=== PATIENT | male | born 1995 | race Caucasian/White ===

== ENCOUNTER 2019-05-21 17:58 | Outpatient (REF) | payer MEDICAID, SELFPAY ==
[2019-05-21 19:51] LABS: Abs Immature Grans 0.04 k/cumm (0.0-0.09); Absolute Basophil Count 0.03 k/cumm (0.0-0.2); Absolute Monocyte Count 1.43 k/cumm (0.11-0.7); Basophils % 0.2; Eosinophils % 2.6; HCT 44.3 % (40.0-50.0); Immature Grans % 0.3; Lymphocytes % 22.8; Mean Corp. HGB Concentration 33.9 g/dL (32.0-36.0); Mean Corpuscular Hemoglobin 27.7 pg (27.0-33.0); Mean Corpuscular Volume 81.9 fL (80-95); Mean Platelet Volume 10.9 fL (8.0-11.0); Monocytes % 10.2; Neutrophils % 63.9; Platelet Count 352 x1000/uL (130-400); RBC 5.41 m/cumm (4.50-6.00); RBC Distribution Width 12.8 % (11.8-14.1); White Blood Cell Count 14.05 k/cumm (4.4-10.8)
[2019-05-21 19:59] LABS: Absolute Eosinophil Count 0.37 k/cumm (0.0-0.7); Absolute Neutrophil Count 8.98 k/cumm (1.2-6.7)
[2019-05-21 20:04] LABS: ALT 28 U/L (16-63); AST 12 U/L (15-37); Albumin 4.1 g/dL (3.4-5.0); Alkaline Phosphatase 85 U/L (46-116); Anion Gap 6.7 mmol/L (3-11); BUN 10 mg/dL (7-18); Bilirubin, Total 0.3 mg/dL (0.2-1.0); CO2 30.3 mmol/L (21.0-32.0); CREATININE 0.85 mg/dL (0.70-1.30); Calcium 9.4 mg/dL (8.5-10.1); Calculated LDL 132 mg/dL; Chloride 102 mmol/L (98-107); Cholesterol 219 mg/dL (50-200); Glucose 75 mg/dL (70-100); HDL Cholesterol 38 mg/dL (40-60); Potassium 4.2 mmol/L (3.5-5.1); Sodium 139 mmol/L (136-145); TSH (W/Ref FT4) 0.51 uIU/mL (0.36-3.74); Triglyceride 245 mg/dL (30-150)
== END 2019-05-21 18:18 ==
LOC: NCHCN 17:58
PROVIDERS: PCP Family Medicine; Visit Provider Family Medicine
DX: F20.9 Schizophrenia, unspecified (principal); Z68.38 Body mass index [BMI] 38.0-38.9, adult; D72.829 Elevated white blood cell count, unspecified
CPT/HCPCS: 80053; 80061; 84443; 85025

== ENCOUNTER 2020-05-22 17:34 | Outpatient (REF) | payer MEDICAID, SELFPAY | END 2020-05-22 17:54 | LOC: NCHCN 17:34 | PROVIDERS: PCP Family Medicine; Visit Provider Family Medicine | DX: Z13.1 Encounter for screening for diabetes mellitus (principal) | CPT/HCPCS: 83036 ==

== ENCOUNTER 2020-06-29 07:45 | Outpatient (CLI) | payer MEDICAID, SELFPAY ==
[2020-07-01 17:53] LABS: COVID-19 RT-PCR Result NEGATIVE (Negative)
== END 2020-06-29 08:05 ==
PROVIDERS: PCP Family Medicine; Visit Provider Family Medicine
DX: Z11.59 Encounter for screening for other viral diseases (principal); Z01.818 Encounter for other preprocedural examination
CPT/HCPCS: U0003

== ENCOUNTER 2020-07-02 04:31 | Outpatient (CLI) | payer MEDICAID, SELFPAY ==
[2020-07-02] MEDS: Albuterol HFA 18 GM 200 PUFF INH IH (15:43)
[2020-07-02] MEDS: Inhaler, Assist Device 1 EACH MC (15:43)
--- NOTE | 2020-07-06 09:31 | W.PFT ---
Date of service: 07/02/20 Time of Service: 03:00 Pulmonary Function Test Result Requesting Provider Dr Mondragon Interpretation Spirometry: Shows borderline mild obstructive airways disease, no bronchodilator response Lung Volumes: No evidence of restriction Diffusion Capacity: Mildly reduced even when corrected to alveolar volume Airway Pressure: Normal Impression Borderline mild obstructive airways disease with no significant bronchodilator response, this is associated with mild diffusion defect, Clinical Correlation therefore is recommended.
== END 2020-07-02 04:51 ==
PROVIDERS: PCP Family Medicine; Visit Provider Family Medicine
DX: R06.02 Shortness of breath (principal)
CPT/HCPCS: 94060; 94726; 94729

== ENCOUNTER 2020-09-16 18:51 | Outpatient (REF) | payer MEDICAID, SELFPAY ==
[2020-09-18 17:55] LABS: COVID-19 RT-PCR UVMMC Result Positive (Negative)
== END 2020-09-16 19:11 ==
LOC: NCHCN 18:51
PROVIDERS: PCP Family Medicine; Visit Provider Physician Assistant
DX: Z20.828 Contact with and (suspected) exposure to other viral communicable diseases (principal)
CPT/HCPCS: U0003

== ENCOUNTER 2020-11-08 12:15 | Emergency (ER) | payer MEDICAID, SELFPAY ==
[2020-11-08 12:23] VITALS: BP 94/58; PULSE 99; RESP 18; TEMP 36; O2SAT 98
[2020-11-08] MEDS: Ibuprofen 600 MG TAB PO (12:45)
--- NOTE | 2020-11-08 13:06 | DI.RAD_ITS ---
EXAM: XR KNEE RT 3V AP,LAT,NIKKI CLINICAL HISTORY: fall, dislocated patella. TECHNIQUE: 2D digital imaging was performed. COMPARISON: No exams were available for comparison FINDINGS: BONES: No acute fracture is present. No bony destructive lesion is seen. JOINTS: The knee is normally aligned. No joint effusion is seen. The patella appears laterally sublux ed. Angie view may be considered for further evaluation. Mild degenerative changes are seen in th e lateral femoral tibial joint space. SOFT TISSUE: Moderate joint effusion is present. IMPRESSION: 1. No acute fracture. 2. Moderate joint effusion. 3. Apparent lateral subluxation of the patella. DATA REPOSITORY: RADIATION DOSE DELIVERED:
--- NOTE | 2020-11-08 13:14 | ED.GENADUL_ITS ---
Discharge Plan Disposition Patient Disposition: HOME Condition: Stable Discharge Details Clinical Impression: Closed dislocation of right patella Primary Care Provider: Jeffery Mondragon ED Provider: Kelvin Boyce Home Meds and New Rx's Prescriptions: Continued nicotine 14 MG/24 HR patch 24 hour 14 mg Transdermal DAILY PRN PRNRF: 0 propranolol 20 mg tablet 20 mg PO BID RF: 0 olanzapine 20 mg tablet 20 mg PO HS RF: 0 hydroxyzine HCl 25 mg Tablet 25 mg PO BID PRNRF: 0 albuterol sulfate 90 mcg/actuation HFA aerosol inhaler 2 puff INHALATION PRN PRNRF: 0 Discharge Instructions Instructions: Patellar Dislocation (ED) Additional Instructions: Please take ibuprofen over the counter. Take 600mg by mouth every 6 hours as needed for pain. Please use knee immobilizer and crutches. You may bear weight on her leg as tolerated. Call to schedule follow-up with orthopedics. Return to the ER for any worsening or new concerning symptoms. Referrals: [facility] [Provider Group] Jeffery Mondragon [Primary Care Provider] - Discharge Data Discharge Date/Time-TO BE ENTERED AT DEPARTURE: 11/08/20 13:45 Medical Decision Making 24-year-old male here after slip and fall on ice with what sounds like a patellar dislocation that was self reduced. Patient is neurovascular intact distally. He is tender along his medial retinaculum and has swelling of the knee. X-ray of the right knee was reviewed and interpreted by radiology: No evidence of fracture, joint space effusion, consider MRI of the knee. Ibuprofen was provided for pain. Patient was patient knee immobilizer and provided crutches. Plan will be for him to follow-up with orthopedics. Usual customary discharge instructions were reviewed with the patient. HPI General Mode of arrival: ambulatory . Date/Time Provider Initiated Documentation: 11/08/20 12:42 . Limitations to Documentation: no limitations . Information obtained by: patient . HPI Narrative: 24-year-old male with chief complaint of right knee pain. Patient notes that just prior to arrival he was walking home from the store and slipped on the ice and believes he dislocated his kneecap. He was able to reposition his knee and in doing so relocated kneecap. Pain was initially severe and now much improved. Still hurts when he flexes his knee. No other injury. He has associated knee swelling. Related Data Home Medications Medication Instructions Recorded Confirmed nicotine 14 mg TRANSDERMAL DAILY PRN PRN 04/18/18 11/08/20 patch albuterol sulfate 2 puff INHALATION PRN PRN 11/08/20 11/08/20 hydroxyzine HCl 25 mg PO BID PRN 11/08/20 11/08/20 olanzapine 20 mg PO HS 11/08/20 11/08/20 propranolol 20 mg PO BID 11/08/20 11/08/20 Previous Rx's Medication Instructions Recorded nicotine 14 mg TRANSDERMAL DAILY PRN PRN 04/18/18 patch Allergies Allergy/AdvReac Type Severity Reaction Status Date / Time No Known Allergies Allergy Unverified 11/08/20 12:52 General Stated Complaint: Orthopedic ESPERANZA: 4 Review of Systems Musculoskeletal Musculoskeletal: Reports as per HPI, Denies numbness and Denies tingling Neurologic Neurologic: Denies numbness and Denies tingling PFSH Medical History (Updated 11/08/20 @ 13:23 by Kelvin Boyce MD) Schizoaffective disorder Surgical History (Updated 06/27/18 @ 14:36 by [email or web address] [place]) Repair of inguinal hernia Family History Mother No problems noted. Father No problems noted. Social History Smoking/Tobacco Use Status: Former Tobacco Use Smoking risk assessment performed?: Yes Alcohol Intake: former Drug use: Current Sobriety Do you feel safe at home: Yes Do you feel safe in your relationship?: Yes Exam Const General: cooperative and no acute distress HENMT Head: normocephalic and atraumatic Resp Auscultation: clear to auscultation bilaterally, no rales, no rhonchi and no wheezes Cardio Rate: regular rate and not tachycardic Rhythm: regular rhythm Pulses: dorsalis pedis present on the right 2+ Neuro General: patient alert, patient awake and tone normal Extrem Right lower extremity: knee Details: tenderness (Medial to patella), swelling and other (Able to fully extend against gravity) Course Vital Signs Vital signs: Vital Signs Temperature 36.0 C L 11/08/20 12:23 Pulse 99 H 11/08/20 12:23 Respiratory Rate 18 11/08/20 12:23 Blood Pressure 94/58 L 11/08/20 12:23 Pulse Oximetry 98 11/08/20 12:23 Temperature 36.0 C L 11/08/20 12:23 Temperature Source Skin 11/08/20 12:23 Pulse 99 H 11/08/20 12:23 Respiratory Rate 18 11/08/20 12:23 Respiratory Effort 11/08/20 12:51 Blood Pressure 94/58 L 11/08/20 12:23 Blood Pressure Position Sitting 11/08/20 12:23 Pulse Oximetry 98 11/08/20 12:23 Oxygen Delivery Method Room Air 11/08/20 12:23 Oxygen Flow Rate 0 11/08/20 12:23
--- NOTE | 2020-11-08 13:15 | DI.VRAD_ITS ---
PROCEDURE INFORMATION: Exam: XR Right Knee Exam date and time: 11/08/2020 1:05 PM Age: 24 years old Clinical indication: Pain; Knee; Right; Patient HX: Fall, dislocated patella TECHNIQUE: Imaging protocol: XR Right knee. Views: 3 views. COMPARISON: No relevant prior studies available. FINDINGS: Bones/joints: Joint space effusion. Lateral joint space narrowing with periarticular osteophyte formation. No evidence patella fracture. Soft tissues: Normal. IMPRESSION: No evidence of fracture. Joint space effusion. Consider MRI of the knee. Dictated and Authenticated by: Braulio Frank MD. Ordering:KELLE Warren MD
== END 2020-11-08 13:45 | disposition home or self-care (01) ==
PROVIDERS: Emergency Provider Student in an Organized Health Care Education/Training Program; PCP Family Medicine
DX: S83.091A Other subluxation of right patella, initial encounter (principal); M25.461 Effusion, right knee; W00.0XXA Fall on same level due to ice and snow, initial encounter
CPT/HCPCS: 29505; 73562; 99283

== ENCOUNTER 2020-11-24 09:57 | Outpatient (CLI) | payer MEDICAID, SELFPAY ==
--- NOTE | 2020-11-24 09:00 | DI.RAD_ITS ---
EXAM: XR KNEES MERCHANT ONLY CLINICAL HISTORY: s/p patella dislocation TECHNIQUE: COMPARISON: CR,XR XR KNEE RT 3V AP,LAT,NIKKI from 11/08/2020 FINDINGS: Merchant view of the knees was obtained. Right patella is moderately subluxed laterally. Left nava la is moderately subluxed laterally and there is medial accessory ossicle of the left patella. No ot her significant findings. Subchondral bone appears well maintained. Minimal marginal osteophytes no aurea at the patellofemoral joints bilaterally. IMPRESSION: RADIATION DOSE DELIVERED: Total DLP
== END 2020-11-24 09:58 | disposition home or self-care (01) ==
LOC: DIORS 09:57
PROVIDERS: PCP Family Medicine; Referring Provider Family Medicine; Visit Provider Physician Assistant Surgical
DX: S83.012A Lateral subluxation of left patella, initial encounter (principal); S83.011A Lateral subluxation of right patella, initial encounter
CPT/HCPCS: 73565

== ENCOUNTER 2020-12-28 16:21 | Outpatient (REF) | payer MEDICAID, SELFPAY ==
[2020-12-28 16:14] LABS: Hemoglobin A1C 4.7 % (<5.7)
[2020-12-28 16:21] LABS: Calculated LDL 151 mg/dL (<100); Cholesterol 237 mg/dL (<200); HDL Cholesterol 46 mg/dL (40-60); Triglyceride 202 mg/dL (<150)
== END 2020-12-28 16:22 | disposition home or self-care (01) ==
LOC: NCHCN 16:21
PROVIDERS: PCP Family Medicine; Visit Provider Family Medicine
DX: Z13.1 Encounter for screening for diabetes mellitus (principal); Z13.220 Encounter for screening for lipoid disorders; Z00.00 Encounter for general adult medical examination without abnormal findings
CPT/HCPCS: 80061; 83036

== ENCOUNTER 2022-06-01 18:28 | Outpatient (REF) | payer MEDICAID, SELFPAY ==
[2022-06-03 09:46] LABS: HIV-1/2 Ag & Ab Screen Negative (Negative)
[2022-06-03 10:00] LABS: Syphilis Serology (RPR) Negative (Negative)
[2022-06-03 11:00] LABS: Hepatitis B Surface Ag Negative (Negative)
[2022-06-03 11:29] LABS: Hepatitis C Ab w Rflx HCV PCR Negative (Negative)
== END 2022-06-01 18:29 | disposition home or self-care (01) ==
LOC: NCHCN 18:28
PROVIDERS: PCP Family Medicine; Visit Provider Family Medicine
DX: R94.6 Abnormal results of thyroid function studies (principal); Z11.4 Encounter for screening for human immunodeficiency virus [HIV]; Z11.59 Encounter for screening for other viral diseases; Z11.3 Encounter for screening for infections with a predominantly sexual mode of transmission
CPT/HCPCS: 86803; 87340; 87389; 84443; 86592

== ENCOUNTER 2022-08-07 07:56 | Emergency (ER) | payer MEDICAID, SELFPAY ==
[2022-08-07 08:05] VITALS: BP 145/100; PULSE 77; RESP 18; TEMP 36.6; O2SAT 100
--- NOTE | 2022-08-07 09:36 | W.ED.GENAD ---
Discharge Plan Disposition Patient Disposition: Home Condition: Improving Discharge Details Clinical Impression: Pain, dental Primary Care Provider: Jeffery Mondragon ED Provider: Keven Mckenzie Home Meds and New Rx's Prescriptions: New amoxicillin 875 mg tablet 875 mg PO BID Qty: 20 0RF Continued benzonatate 100 mg capsule 100 mg PO TID PRN (Reason: cough) Qty: 14 0RF hydroxyzine HCl 25 mg Tablet 25 mg PO BID PRN albuterol sulfate 90 mcg/actuation HFA aerosol inhaler 2 puff INHALATION PRN PRN Label Comments: INHALE 1 TO 2 PUFFS BY MOUTH EVERY 4 TO 6 HOURS NEEDED FOR WHEEZING OR BEFORE EXERCISE Discharge Instructions Instructions: Toothache (ED) Additional Instructions: Amoxicillin as directed. [id number] medications such as Tylenol, Motrin, Orajel, etc. for symptomatic control. Cool and/or warm compresses every 2 hours for 20 minutes. Salt water swish and spit as tolerated. Please watch for new or worsening symptoms and return to the ER for any concerns. Lastly, use the list provided, contact the dentist on the list tomorrow to obtain prompt outpatient dental follow-up. Discharge Data Discharge Date/Time-TO BE ENTERED AT DEPARTURE: 08/07/22 10:11 Medical Decision Making 26-year-old gentleman with chronic dental pain, worse recently, most recently but increased pain since this morning. Clinically he appears well, nontoxic, afebrile, no trismus, airway is patent. We discussed the importance of outpatient dental follow-up. We will provide amoxicillin for potential early dental infection. We discussed dental block and patient is agreeable. Dental block performed, patient tolerated well, now asymptomatic. Local dental list provided Standard discharge and return precautions were provided. Patient understands, is agreeable to this plan, and has no additional questions or concerns upon discharge. This documentation was generated using [employer] system, please disregard any oddities of phrase or misspellings. Medical Records Medical records reviewed: Yes I reviewed the patient's medical records. Sign Out No HPI General Mode of arrival: ambulatory. Date/Time Provider Initiated Documentation: 08/07/22 09:04. Limitations to Documentation: no limitations. Information obtained by: patient. HPI Narrative: This is a 26-year-old gentleman, former smoker, presents reporting chronic left lower dental pain for at least 2 years but has had no time to address this with a dentist, now reporting increased pain over the past day or so, worse since this morning. He has not taken any [id number] medication. He denies fever, ear pain, difficulty opening his mouth, swallowing, speaking, breathing, etc. He has no additional concerns or complaints at this time. Related Data Home Medications Medication Instructions Recorded Confirmed albuterol sulfate 90 mcg/actuation 2 puff inhalation PRN PRN 11/08/20 06/20/22 aerosol inhaler hydroxyzine HCl 25 mg tablet 25 mg PO BID PRN 11/08/20 06/20/22 benzonatate 100 mg capsule 100 mg PO TID PRN cough #14 caps 06/20/22 06/20/22 amoxicillin 875 mg tablet 875 mg PO BID #20 tabs 08/07/22 Previous Rx's Medication Instructions Recorded benzonatate 100 mg capsule 100 mg PO TID PRN cough #14 caps 06/20/22 amoxicillin 875 mg tablet 875 mg PO BID #20 tabs 08/07/22 Allergies Allergy/AdvReac Type Severity Reaction Status Date / Time contact metal agent Allergy Verified 06/20/22 12:29 General Stated Complaint: DentalOral ESPERANZA: 4 Review of Systems Constitutional Constitutional: Denies fever(s) and Denies headache(s) ENT Ears, Nose, Mouth, and Throat: Denies headache(s), Reports mouth pain, Denies sore throat and Denies throat swelling Gastrointestinal Gastrointestinal: Denies abdominal pain, Denies nausea and Denies vomiting Integumentary/Breasts Skin/Breast: Denies rash Neurologic Neurologic: Denies headache(s) Allergic/Immunologic Allergic/Immunologic: Denies throat swelling [facility] All Active Problems (Updated 08/07/22 @ 09:49 by GRISELDA Berry) Pain, dental (Acute) Varicocele (Acute) Acne (Acute) Akathisia (Acute) Constipation (Acute) Sebaceous cyst (Acute) Schizophrenia (Chronic) Hypertension (Chronic) Abnormal thyroid function test (Acute) Sleep apnea (Acute) Patellar maltracking (Acute) Closed dislocation of right patella (Acute) Drug-induced psychotic disorder (Acute) Paranoid behavior (Acute) Medical History Cavernous hemangioma Schizoaffective disorder Surgical History Repair of inguinal hernia Family History Mother No problems noted. Father No problems noted. Social History Smoking/Tobacco Use Status: Former Tobacco Use Smoking risk assessment performed?: Yes Alcohol Intake: former Drug use: Daily Substance use type: marijuana Current gender identity: male Do you feel safe at home: Yes Do you feel safe in your relationship?: Yes Exam Const General: cooperative, healthy appearing, comfortable and no acute distress Orientation: alert and awake HENMT Head: normal to inspection, normocephalic and atraumatic Ears: external ears normal, TM's normal bilaterally and EAC's normal General nose exam: external nose normal Face and sinus: normal facial exam Mouth: oral mucosae normal and moist mucous membranes Teeth image: 1. Tenderness. 2 this is broken-decayed to near the buccal mucosa. There is no obvious abscess, drainage, foul smell, erythema, etc. Airway is patent. No trismus. Throat: posterior oropharynx normal Eyes Conjunctivae: conjunctivae normal Neck Neck: normal visual inspection, full ROM, no lymphadenopathy, trachea midline and supple Resp Effort & Inspection: normal respiratory effort and able to speak in complete sentences Skin General skin exam: no rashes or lesions noted Neuro General: patient alert, patient awake, moves all extremities and no focal motor deficits Cognition: normal cognition Speech: speech normal Gait: normal gait Sensory Exam: no sensory deficits noted Psych Appearance: grossly normal Mental Status: mental status grossly normal Course Vital Signs Vital signs: Vital Signs Temperature 36.6 C 08/07/22 08:05 Pulse 77 08/07/22 08:05 Respiratory Rate 18 08/07/22 08:05 Blood Pressure 145/100 H 08/07/22 08:05 Pulse Oximetry 100 08/07/22 08:05 Temperature 36.6 C 08/07/22 08:05 Temperature Source Temporal Artery Scan 08/07/22 08:05 Pulse 77 08/07/22 08:05 Respiratory Rate 18 08/07/22 08:05 Respiratory Effort Non-Labored 08/07/22 08:10 Blood Pressure 145/100 H 08/07/22 08:05 Blood Pressure Position Sitting 08/07/22 08:05 Pulse Oximetry 100 08/07/22 08:05 Oxygen Delivery Method Venti Mask 08/07/22 08:05 Oxygen Flow Rate 0 08/07/22 08:05 Procedures Nerve Block Nerve Block 1: Time out performed: Yes Local Anesthetic: Lidocaine 1%, Bupivicaine 0.5% and other anesthetic ([id number] mixture) Amount of anesthesia used (mL): 3 Side: left Intraoral Nerve Block: inferior alveolar Procedure Successful: Yes Patient Tolerated Procedure: well and no complications Complications: none
[2022-08-07] MEDS: Amoxicillin 875 MG TAB PO (10:02)
== END 2022-08-07 10:11 | disposition home or self-care (01) ==
PROVIDERS: Emergency Provider Physician Assistant; PCP Family Medicine
DX: K08.89 Other specified disorders of teeth and supporting structures (principal)
CPT/HCPCS: 64400

== ENCOUNTER 2023-07-04 16:19 | Outpatient (REF) | payer MEDICAID, SELFPAY ==
[2023-07-04 16:36] LABS: TSH (W/Ref FT4) 0.37 uIU/mL (0.36-3.74)
== END 2023-07-04 16:20 | disposition home or self-care (01) ==
LOC: NCHCN 16:19
PROVIDERS: PCP Family Medicine; Visit Provider Family Medicine
DX: F41.8 Other specified anxiety disorders (principal); R94.6 Abnormal results of thyroid function studies
CPT/HCPCS: 84443

== ENCOUNTER 2024-08-06 13:09 | Emergency (ER) | payer OTHER, SELFPAY ==
[2024-08-06 13:20] VITALS: BP 140/85; PULSE 72; RESP 15; TEMP 36.3; O2SAT 99
--- NOTE | 2024-08-06 14:30 | DI.RAD_ITS ---
Exam(s) XR ANKLE LT COMPLETE EXAM: XR ANKLE LT COMPLETE CLINICAL HISTORY: Fall, pain posterior. TECHNIQUE: 2D digital imaging was performed. COMPARISON: No exams were available for comparison FINDINGS: 3 views There is no oblique mildly displaced fracture of the distal fibula at and just above the lateral mall eolus level. No other fractures identified and there is no widening the ankle mortise on these nonst ress views. There is prominent swelling over the lateral aspect of the ankle. The talar dome appear s unremarkable. No evidence of incidental osseous tarsal coalition. IMPRESSION: Mildly displaced oblique fracture of the distal fibula. DATA REPOSITORY: RADIATION DOSE DELIVERED:
--- NOTE | 2024-08-06 14:30 | DI.RAD_ITS ---
Exam(s) XR KNEE LT 4V AP,LAT,NIKKI,PAT EXAM: XR KNEE LT 4V AP,LAT,NIKKI,PAT CLINICAL HISTORY: Fall, patella dislocated and now back in. TECHNIQUE: 2D digital imaging was performed. COMPARISON: CR LEFT KNEE 3 VIEW COMPLETE from 11/22/2014 CR,XR XR KNEE RT 3V AP,LAT,NIKKI from 11/08/2020 CR XR KNEES MERCHANT ONLY from 11/24/2020 FINDINGS: Four views There is a 1.2 x 0 point 6 cc fracture fragment off the medial aspect of the patella and there is connie roximately 1.2 cm of lateral deviation of the patella. This finding is consistent with avulsion frac ture injury off the medial aspect of the patella most probably related to prior lateral patellar disl ocation. However, in reviewing previous studies on this patient I note that this patient has had prior lateral patellar displacements, as seen on prior images dating back to November 2014. Rachellet's view of November 2020 revealed similar bone fragment and therefore this may not be acute. IMPRESSION: Abnormal findings as above. If clinically indicated MRI can be performed to determine if there is jose ne edema implying acute on chronic. DATA REPOSITORY: RADIATION DOSE DELIVERED:
--- NOTE | 2024-08-06 14:38 | ED.GENADUL_ITS ---
Discharge Plan Disposition Patient Disposition: Home Condition: Stable Discharge Details Clinical Impression: Dislocation of patella, left, closed, Fracture of distal end of left fibula, Hypertension, Sleep apnea Primary Care Provider: Jeffery Mondragon ED Provider: Laurie Goodwin Home Meds and New Rx's Prescriptions: No Action hydroxyzine HCl 25 mg Tablet 25 mg PO BID PRN albuterol sulfate 90 mcg/actuation HFA aerosol inhaler 2 puff INHALATION PRN PRN Patient Comments: INHALE 1 TO 2 PUFFS BY MOUTH EVERY 4 TO 6 HOURS NEEDED FOR WHEEZING OR BEFORE EXERCISE Discharge Instructions Instructions: Lower Leg Fracture ED Additional Instructions: You were seen in the emergency department today for evaluation after a fall, and were found to have a fracture of your fibula at the level of your ankle. You also dislocated your patella, which is an injury that you have had in the past. You met with our orthopedic doctor who plans to repair your fracture with surgery tomorrow. I have placed you in a boot and you need to use crutches to avoid putting weight on that left leg. Please do not eat or drink anything after midnight tonight in anticipation of surgery. The clinic should call you in the morning and anticipate surgery sometime after 11 AM, though this is subject to change. You can also call the clinic in the morning if you have any specific questions. Please use Tylenol and ibuprofen for management of pain, and ice and elevation for management of swelling. You can return to the emergency department if you have any specific concerns. Thank you for allowing us to be part of your care. Stand Alone Forms: Work Release Referrals: Tee York MD [ [facility] STAFF PHYSICIAN] - 1 day HPI General Mode of arrival: ambulatory . Date/Time Provider Initiated Documentation: 08/06/24 13:37 . Limitations to Documentation: no limitations . Information obtained by: patient, family and old records reviewed . HPI Narrative: HPI: This is a 28-year-old male patient with a past medical history significant for schizophrenia, hypertension, and sleep apnea, presented for evaluation of a left leg injury after a fall. The patient was in his normal state of health, was walking at work and slipped on the ice, falling and landing on his left leg. He states that he did not have any loss of consciousness, dizziness, or chest pain prior to this event, did not strike his head and did not lose consciousness. He does not take any blood thinners or anticoagulants. The patient reports that initially after the event he was able to walk, though he noticed that his patella appeared out of place. He states that he pushed the patella back to the location where it went and has had an improvement in his pain in his knee, states that his majority of his pain is located on the lateral aspect of the lower leg just proximal to the ankle. He states that he is also having pain in the posterior region of his ankle. He has an abrasion over his knee. He did not injure any other part of his body, took Tylenol prior to arrival at our facility with good effect. Exam: Gen: Awake and alert, in no apparent distress HEENT: Non-icteric sclera, PERRL Neck: Supple, full range of motion without tenderness Lungs: No apparent respiratory distress, normal respiratory effort. CV: Appears well perfused, strong distal pulses Abdomen: Non-distended MSK: Moves 4 extremities without apparent limitation in ROM. The patient has tenderness to palpation over the front of the knee, patella appropriately placed and no tenderness to palpation of the quadriceps or patellar tendons. No significant joint effusion palpable. The patient has some pain with the extrem es of extension of the left knee. Left ankle reveals tenderness to palpation just proximal to the lateral malleolus, no laxity or reproduction of pain with stressing of the syndesmosis. The patient has some tenderness to palpation over the Achilles tendon but has full range of motion and strength with dorsi and plantarflexion. No medial malleoli or pain, no pain over the left midfoot. Strong DP pulses Skin: Visualized skin without rashes, cyanosis. Abrasion left knee Neuro: No obvious focal deficits or facial asymmetry. Speaks in full, clear sentences. Psych: Appropriate for situation. MDM: This is a 28-year-old male patient who is presenting for evaluation after a fall. My differential includes but is not limited to fracture, dislocation, specifically patellar dislocation though this patient has already reduced this injury in the outpatient environment. Considered contusion, ligamentous injury, muscular strain. Considered neurovascular injury though this is less consistent with the patient's history and physical examination. At this time the patient is not desiring of any additional medications for management of pain. Will obtain x-ray imaging of the affected left knee and ankle. ED Course: I independently interpreted the patient's x-ray imaging, which does show a mildly displaced distal fibula fracture, as well as a pre-existing fracture fragment at the patella concerning for chronic and recurrent patellar dislocations. There is no other evidence of injury to the knee. I discussed this patient's case with orthopedics, who recommends operative fixation of the distal fibula. They will also discuss management of the patient's recurrent patellar dislocations, and requested a CT of the patient's knee. I placed the patient in a cam boot and he will be nonweightbearing until such time as he can meet with orthopedics. CT was completed and this was to be discussed and reviewed with the patient at his visit with orthopedics tomorrow. At this time, the patient has had a full medical evaluation and is safe for discharge to home. They are hemodynamically stable, ambulatory, and tolerating PO. They are understanding of the follow-up plan and return precautions. They left our facility without incident. Laurie Goodwin MD Related Data Home Medications ?Medication ?Instructions ?Recorded ?Confirmed albuterol sulfate 90 mcg/actuation 2 puff inhalation PRN PRN 11/08/20 08/06/24 aerosol inhaler hydroxyzine HCl 25 mg tablet 25 mg PO BID PRN 11/08/20 08/06/24 Allergies Allergy/AdvReac Type Severity Reaction Status Date / Time contact metal agent Allergy Mild Hives Verified 08/06/24 13:24 General Stated Complaint: Orthopedic ESPERANZA: 4 Course Vital Signs Vital signs: Vital Signs Temperature 36.3 C L 08/06/24 13:20 Pulse 72 08/06/24 13:20 Respiratory Rate 15 08/06/24 13:20 Blood Pressure 140/85 08/06/24 13:20 Pulse Oximetry 99 08/06/24 13:20 Temperature 36.3 C L 08/06/24 13:20 Pulse 72 08/06/24 13:20 Respiratory Rate 15 08/06/24 13:20 Respiratory Effort Normal 08/06/24 13:23 Blood Pressure 140/85 08/06/24 13:20 Blood Pressure Position Sitting 08/06/24 13:20 Pulse Oximetry 99 08/06/24 13:20 Oxygen Delivery Method Room Air 08/06/24 13:20 Oxygen Flow Rate 0 08/06/24 13:20 Pain Level 7 08/06/24 14:29 Medical Decision Making Quality:SDOH Health Related Social Needs: No Data to Display PFSH All Active Problems (Updated 08/06/24 @ 16:27 by Laurie Goodwin MD) Fracture of distal end of left fibula (Acute) Dislocation of patella, left, closed (Acute) Varicocele (Acute) Acne (Acute) Akathisia (Acute) Constipation (Acute) Sebaceous cyst (Acute) Schizophrenia (Chronic) Hypertension (Chronic) Abnormal thyroid function test (Acute) Sleep apnea (Acute) Patellar maltracking (Acute) Closed dislocation of right patella (Acute) Drug-induced psychotic disorder (Acute) Paranoid behavior (Acute) Medical History Cavernous hemangioma Schizoaffective disorder Surgical History Repair of inguinal hernia Family History Mother No problems noted. Father No problems noted. Social History Smoking/Tobacco Use Status: Former Tobacco Use Smoking risk assessment performed?: Yes Alcohol Intake: former Drug use: Daily Substance use type: marijuana Current gender identity: male Do you feel safe at home: Yes Do you feel safe in your relationship?: Yes PAWSS Have you Been Recently Intoxicated or Drunk Within the Last 30 days?: No Have you Ever Experienced Previous Episodes of Alcohol Withdrawal?: No Have you ever Experienced Withdrawal Seizures?: No Have you ever Experienced Delirium Tremens(DT)s?: No Have you ever undergone Alcohol Rehabilitation Treatment (i.e, inpt ot outpatient treatment programs)?: No Have you ever Experienced Blackouts?: No Have you ever Combined Alcohol with other Downers within the last 90 days?: No Have you ever Combined Alcohol with any other Substance of Abuse during the last 90 days?: No Positive Blood Alcohol level on Presentation? [PCS.BAL]: No Evidence of Increased Autonomic Activity (i.e. HR>120, tremor, sweating, agitation, nausea)?: No Result: 0
--- NOTE | 2024-08-06 15:58 | W.ORTHOCONSU ---
Date of service: 08/06/24 Time of Service: 15:40 History of Present Illness History of Present Illness Chief Complaint: Left Knee and Ankle Injury Narrative: Mina is a 24-year-old male who suffered a slip and fall at work today on icy conditions. He had immediate pain about his left ankle collapsing into a slightly valgus position of the knee and external rotate position of the left ankle. He also had a prominence to his left knee with a dislocated patella which she has had in the past. He is able to reduce the patella in length on the ankle until he was able to get transport to the emergency department. He currently reports controlled pain. His pain is worse on the lateral side of the left ankle. He has mild pain about the knee. He has a history of dislocating patellas he thinks on both knees, first occurring when he was about 17 years old. He thinks he is had 2 or 3 dislocations, unsure of the most recent one. He otherwise functions at a high level. He currently denies any numbness or tingling. He denies any other significant medical issues. Consults Consult date: 08/06/24 Requesting physician: Laurie Goodwin Consult Reason Left patellar dislocation, left distal fibula fracture Assessment and Plan Assessment and plan (1) Dislocation of patella, left, closed: Status: Acute Assessment and plan: Mina suffered another dislocation of his left patella. He has chronic changes about his patella with ossicle seen adjacent to the patella with active from previous dislocation. He also has an increased TT?TG distance which makes patellar treatments alone usually not successful. Therefore, at this point I would treat conservatively with some bracing and time. He has done well in the past without significant instability and therefore I think this can continue to be treated nonoperatively. Operative fixation would involve tibial tubercle transfer at a minimum. (2) Fracture of distal end of left fibula: Status: Acute Assessment and plan: Mina is a 28-year-old male who suffered a injury to his left ankle resulting in a distal fibula fracture. There is some slight widening of the medial clear space and asymmetry of the tibiotalar space. This fracture of the fibula does extend proximal to the syndesmosis and the joint, Terry B fibula fracture. Given his young age and active lifestyle with some of the mild displacement seen I would recommend fixation. This would allow anatomic reduction of the fracture fragments instability to allow him to start increasing activity soon as well as hold the ankle in a reduced position. I discussed this with him and recommended proceeding with operative fixation. Is unclear we will be able to perform this. I briefly reviewed the surgery with him. He does agree to proceed with the surgery and I will look for a available time to do this. He will be placed into a fracture walker boot, nonweightbearing with crutches. He will receive a phone call for scheduling surgery. Review of Systems All systems reviewed & are unremarkable except as noted in HPI and below PFSH All Active Problems (Updated 08/06/24 @ 16:27 by Laurie Goodwin MD) Fracture of distal end of left fibula (Acute) Dislocation of patella, left, closed (Acute) Varicocele (Acute) Acne (Acute) Akathisia (Acute) Constipation (Acute) Sebaceous cyst (Acute) Schizophrenia (Chronic) Hypertension (Chronic) Abnormal thyroid function test (Acute) Sleep apnea (Acute) Patellar maltracking (Acute) Closed dislocation of right patella (Acute) Drug-induced psychotic disorder (Acute) Paranoid behavior (Acute) Medical History Cavernous hemangioma Schizoaffective disorder Surgical History Repair of inguinal hernia Family History Mother No problems noted. Father No problems noted. Social History Smoking/Tobacco Use Status: Former Tobacco Use Smoking risk assessment performed?: Yes Alcohol Intake: former Drug use: Daily Substance use type: marijuana Current gender identity: male Do you feel safe at home: Yes Do you feel safe in your relationship?: Yes Exam Narrative Exam Narrative: Sitting up in the chair. No acute distress. Alert and orient x 3. Valuation the left leg shows some swelling about the left knee. There is a mild abrasion seen about the anterior aspect of the left knee without any active bleeding. There is some mild pain to palpation of the medial aspect of patella. The knee is kepta at About 70 Degrees of Flexion and He Is Comfortable. Evaluation the Left Leg Shows Some Mild Swelling but Left Ankle Pain over the Lateral Aspect Ankle to Lesser Extent over the Medial Side. Sensation Intact Light Touch over the Deep and Superficial Peroneal Nerve and Tibial Nerve. Palpable DP/PT pulse. Resp Effort & Inspection: normal respiratory effort Auscultation: clear to auscultation bilaterally Cardio Rate: regular rate Rhythm: regular rhythm Results Last Vital Signs Temp 36.3 C L 08/06/24 13:20 Pulse 72 08/06/24 13:20 Resp 15 08/06/24 13:20 BP 140/85 08/06/24 13:20 Pulse Ox 99 08/06/24 13:20 Imaging Imaging Studies: X-ray of the left knee shows maintained joint spaces of the tibiofemoral joints. However, there is notable lateral tilt of the patella with a symmetry between the lateral patellofemoral space in the medial patellofemoral space. A corticated ossicle seen adjacent to the medial aspect of the patella, likely from previous patellar dislocation or a normal variant. X-ray of the left ankle shows slight widening of the medial clear space with faint asymmetry in the superior tibiotalar space. There is a long oblique fracture of the distal fibula with mild displacement of a few millimeters. CT scan of the left knee was performed which shows valgus alignment of the knee. There may be some faint narrowing of the medial joint space with a small osteophyte seen about the medial femur. There also are some calcification seen about the lateral femur without a clear origin. In the patellofemoral space the patella is superior to the groove and lateral translated and tilted with a corticated ossicle seen about the medial patella with some faint calcifications seen distally. The TT?TG distance is at least 25 to 27 mm. The trochlea does appear somewhat shallow.
--- NOTE | 2024-08-06 16:14 | DI.CT_ITS ---
Exam(s) CT LOWER EXTREMITY LT WO EXAM: CT LOWER EXTREMITY LT WO CLINICAL HISTORY: Knee dislocation. TECHNIQUE: Imaging Protocol: Axial computed tomography images with coronal and sagittal reformatted images were created and reviewed. CONTRAST MATERIAL: Intravenous: None COMPARISON: CR XR KNEES MERCHANT ONLY from 11/24/2020 FINDINGS: OSSEOUS: There is lateral deviation of the patella and there is a 7 x 4 x 17 mm calcification off the medial a spect of the patella which is corticated on all sides and most probably corresponds to sequela of a r emote lateral patellar dislocation. There are also small calcific densities off the outer aspect of the lateral femoral condyle which are probably also related to prior impaction of the patella at this level. There is no fracture of the tibial plateau nor of the fibular head and neck. There is incre ased joint fluid noted, predominately in the lateral aspect of the suprapatellar bursa and medial asp ect of the joint There are mild-moderate degenerative changes in the medial compartment. No obvious degenerative zamora ges in the lateral compartment. The patella is deviated laterally. IMPRESSION: Findings as above which are most probably sequelae of prior lateral patellar dislocation with impacti on upon the outer aspect of the lateral femoral condyle. The 7 x 4 x 17 mm osteophytic fragment off the medial aspect of the patella is corticated the cyst with chronicity and was evident on prior x-ra y of 11/24/2020. Recommend follow-up with orthopedics RADIATION DOSE DELIVERED: 210.62mGy.cm Total DLP DATA REPOSITORY: All CT scans at this facility are submitted to the National Radiology Data Registry (NRDR) Dose Index Registry (DIR) with the [employer] (A[employer]). RADIATION OPTIMIZATION: All CT scans at this facility use at least one of these dose optimization te chniques: automated exposure control; mA and/or kV adjustment per patient size (includes targeted exa ms where dose is matched to clinical indication); or iterative reconstruction.
== END 2024-08-06 16:45 | disposition home or self-care (01) ==
PROVIDERS: Emergency Provider Emergency Medicine; PCP Family Medicine
DX: S83.005A Unspecified dislocation of left patella, initial encounter; S82.832A Other fracture of upper and lower end of left fibula, initial encounter for closed fracture; Z87.891 Personal history of nicotine dependence; W00.0XXA Fall on same level due to ice and snow, initial encounter; Y93.01 Activity, walking, marching and hiking; Y92.89 Other specified places as the place of occurrence of the external cause; Y99.0 Civilian activity done for income or pay
CPT/HCPCS: 99284; 73564; 73610; 73700

== ENCOUNTER 2024-08-07 11:56 | Day surgery (SDC) | payer OTHER, SELFPAY ==
[2024-08-07] VITALS (22 sets, daily range): BP systolic 89–144; BP diastolic 43–75; PULSE 48–80; RESP 12–23; TEMP 36–36.4; O2SAT 99–100; BMI 34.6
--- NOTE | 2024-08-07 11:57 | PDOC.DSDIS_ITS ---
Date of service: 08/07/24 Discharge Plan Disposition Condition: Good Discharge Details Reason For Visit: ORIF L Ankle Attending Provider: Tee York Primary Care Provider: Jeffery Mondragon Home Meds and New Rx's Prescriptions: New acetaminophen 500 mg tablet 1,000 mg PO TID Qty: 90 3RF ibuprofen 600 mg tablet 600 mg PO TID PRNQty: 90 3RF oxycodone 5 mg tablet 5 mg PO Q4H MDD 6 tabs PRN (Reason: pain) Qty: 20 0RF aspirin 81 mg tablet,delayed release (DR/EC) 81 mg PO BID Qty: 30 0RF Continued hydroxyzine HCl 25 mg Tablet 25 mg PO BID PRN albuterol sulfate 90 mcg/actuation HFA aerosol inhaler 2 puff INHALATION PRN PRN Patient Comments: INHALE 1 TO 2 PUFFS BY MOUTH EVERY 4 TO 6 HOURS NEEDED FOR WHEEZING OR BEFORE EXERCISE Discontinued acetaminophen 500 mg capsule 1,000 mg PO DIRECTED PRN ibuprofen [IBU-200] 200 mg tablet 200 mg PO ONCE Discharge Instructions Additional Instructions: Ankle ORIF Discharge Instructions Activity: You are NON WEIGHT BEARING. You should keep the leg elevated as much as possible. You may wiggle your toes and move your hip and knee. Dressings: You should keep your splint clean and dry. Do NOT get wet or dirty. If you have issues with your splint, please call the office at [phone] or the hospital after hours. Medications: - You should take Tylenol and Ibuprofen around the clock for baseline pain. - You have been prescribed a stronger narcotic for breakthrough pain. - You should take a Baby Aspirin (81mg) twice a day for blood clot prevention. Follow-up: 2 weeks Referrals: Tee York MD [ [facility] STAFF PHYSICIAN] - Equipment/Supplies: Non-Weight Bearing Crutches Activity:: Elevate Remove Dressings/Wound Care:: Do Not Remove Shower/Bathe:: Cover Activity:: Activity as Tolerated Diet:: As Tolerated Discharge Orders Discharge Orders: Discharge Order (Routine); Ordered 08/07/24 Ordered By: Feliciano Torres DS: Diagnosis Discharge Diagnosis (1) Fracture of distal end of left fibula: Status: Acute
--- NOTE | 2024-08-07 12:24 | W.ANESPRE ---
General Info Date of Service Date Performed: 08/07/24 Height: 6 ft 3 in Weight: 125.6 kg Body Mass Index (BMI): 34.6 Surgical Procedure: Operation Date: 08/07/24 15:40 Proposed Procedure Side Surgeon p Ankle ORIF Left Tee York MD Meds Allergies and Home Medications Allergies Allergy/AdvReac Type Severity Reaction Status Date / Time contact metal agent Allergy Mild Hives Verified 08/07/24 12:16 Home Medication ?Medication ?Instructions ?Recorded albuterol sulfate 90 mcg/actuation 2 puff inhalation PRN PRN 11/08/20 aerosol inhaler hydroxyzine HCl 25 mg tablet 25 mg PO BID PRN 11/08/20 acetaminophen 500 mg tablet 1,000 mg (2 x 500 mg) PO TID #90 08/07/24 tabs aspirin 81 mg tablet,delayed 81 mg PO BID #30 tabs 08/07/24 release ibuprofen 600 mg tablet 600 mg PO TID PRN #90 tabs 08/07/24 oxycodone 5 mg tablet 5 mg PO Q4H PRN pain #20 tabs 08/07/24 Current Visit Medications: Current Medications Generic Name Dose Route Start Last Admin Trade Name Freq PRN Reason Stop Dose Admin Acetaminophen 1,000 mg 08/07/24 06:00 Acetaminophen 500 Mg Tab PO 08/07/24 23:59 PREOP ANDREW Acetaminophen 650 mg 08/07/24 11:57 Acetaminophen 325 Mg Tab PO 09/06/24 11:56 Q4H PRN PRN Celecoxib 400 mg 08/07/24 06:00 Celecoxib 200 Mg Cap PO 08/07/24 23:59 PREOP ANDREW Cefazolin Sodium 3,000 mg/ 100 mls @ 200 mls/hr 08/07/24 06:00 Sodium Chloride IV 08/07/24 23:59 PREOP ANDREW Tranexamic Acid/Sodium Chloride 1,000 mg in 100 mls @ 600 mls/hr 08/07/24 08:00 IVPB 08/07/24 23:59 PREOP ANDREW IV Miscellaneous Supplies 1 each 08/07/24 06:00 Iv Access IV 08/07/24 23:59 DIRECTED ANDREW Oxycodone HCl 5 mg 08/07/24 11:57 Oxycodone 5 Mg Tab PO 09/06/24 11:56 Q3H PRN PRN Pain Sodium Chloride 0 ml 08/07/24 06:00 Normal Saline Flush 10 Ml Syr IV 08/07/24 23:59 PRN PRN Sodium Chloride 0 ml 08/07/24 06:00 Normal Saline 10 Ml Vial IJ 08/07/24 23:59 DIRECTED PRN Sterile Water 0 ml 08/07/24 06:00 Water,Injection,Sterile 10 Ml Vial IJ 08/07/24 23:59 DIRECTED PRN PFSH Active Problems Active Problems: Problem Status Onset Code Fracture of distal end of left fibula Acute 08/06/24 S82.832A Dislocation of patella, left, closed Acute 08/06/24 S83.005A Varicocele Acute I86.1 Acne Acute L70.9 Akathisia Acute G25.71 Constipation Acute K59.00 Sebaceous cyst Acute L72.3 Schizophrenia Chronic F20.9 Hypertension Chronic I10 Abnormal thyroid function test Acute R94.6 Sleep apnea Acute G47.30 Patellar maltracking Acute M22.8X9 Closed dislocation of right patella Acute S83.004A Drug-induced psychotic disorder Acute F19.959 Paranoid behavior Acute F22 Medical History Medical History Cavernous hemangioma Schizoaffective disorder Surgical History Surgical History Repair of inguinal hernia Tobacco Smoking/Tobacco Use Status: Current every day Tobacco Type: e-cigarettes Alcohol Alcohol Intake: current Alcohol intake frequency: a few times a week Substance Use Substance use: Daily Substance use type: marijuana Vital Signs and Lab Results Vital Signs Most Recent Vital Signs in EMR: Most Recent Vital Signs Temp Pulse Resp BP Pulse Ox 36.4 C L 80 18 144/66 H 99 08/07/24 12:05 08/07/24 12:05 08/07/24 12:05 08/07/24 12:05 08/07/24 12:05 Lab Results Blood Type / Crossmatch: No Data to Display Complete Blood Count: No Data to Display Complete Metabolic Panel: No Data to Display Liver Function Panel: No Data to Display Coagulation Panel: No Data to Display Cardiac Panel: No Data to Display Arterial Blood Gas: No Data to Display Venous Blood Gas: No Data to Display Pancreas Panel: No Data to Display Thyroid Panel: No Data to Display Infectious Disease: No Data to Display Blood Cultures: No Data to Display Toxicology Panel: No Data to Display Anesthesia Assessment and Plan Anesthesia History Personal History: No History of Anesthesia Complications Family History: No Family History of Anesthesia Complications Exercise Tolerance Exercise Tolerance: Metabolic Equivalents>4 Pertinent Negatives Pertinent Negatives: No Symptoms of GERD (rare, with acidic foods), No Major Cardiovascular Symptoms or Complaints, No Major Pulmonary Symptoms or Complaints and No History of CVA/TIA Cardiac & Pulmonary Exam Cardiac Exam: Normal S1/S2 Heart Sounds Pulmonary Exam: Clear Bilateral Breath Sounds Cardiac and Pulmonary Comment:: DALI improved since weight loss, no device, albuterol inhaler only with URIs. Implantable Cardiac Device Does patient have a Pacemaker or an ICD?: No Airway Exam Known Difficult Airway: No Mallampati Class: 2 Mouth Opening: Normal (> 3cm) Thyromental Distance: Greater than 3 cm Neck Range of Motion: Full ROM Neck Circumference: Normal Teeth Condition: Normal Dentition and Loose or Chipped (broken molar left lower, nothing loose) ASA Classification ASA Score: ASA 2 Emergency Case?: No NPO Status NPO Status: NPO Clears >2 hours, Solids >8 hours Anesthesia Plan Resuscitation Status: Full Code Anesthesia Technique: General Anesthesia Airway Planned: LMA Monitors Used: Standard Monitors
[2024-08-07] MEDS: Celecoxib 200 MG CAP 400 MG PO (12:38)
[2024-08-07] MEDS: Acetaminophen 500 MG TAB 1000 MG PO (12:39)
[2024-08-07] MEDS: Lactated Ringers 500 ML 80 ML IV (12:50)
[2024-08-07] MEDS: ceFAZolin 3,000 MG in Normal Saline 100 ML 200 MG IV (13:26)
[2024-08-07] MEDS: TRANEXAMIC ACID/SOD. CHL. 1,000 MG/100 ML BAG 600 MG IVPB (13:29)
[2024-08-07] MEDS: Bupivacaine 0.5% Pres-Free W/EPI 30 ML VIAL (14:12)
--- NOTE | 2024-08-07 14:17 | DI.RAD_ITS ---
Exam(s) XR ANKLE LT 2V EXAM: XR ANKLE LT 2V CLINICAL HISTORY: Left ankle fracture TECHNIQUE: 2D and realtime digital imaging was performed. CONTRAST MATERIAL: Refer to procedure report. COMPARISON: CR XR ANKLE LT COMPLETE from 08/06/[address] LOWER EXTREMITY LT WO from 08/06/2024 FINDINGS: Fluoroscopy was provided for Dr. York during the performance of a reduction and internal fixatio n of the distal fibular fracture. Please refer to the procedure report for complete details. Ka,r=0.73 mGy IMPRESSION: RADIATION DOSE DELIVERED: 0.0 0.0 0
--- NOTE | 2024-08-07 14:58 | ROE_ITS ---
Operative Note Operative Note PRE-OP DIAGNOSIS: Left Ankle Fracture - Distal Fibula POST-OP DIAGNOSIS: same PROCEDURE: Open Reduction and Internal Fixation of Left Ankle - Lateral Malleolus SURGEON: Tee York COMMUNICATIONS AND SIGNALS SUPERVISOR: Feliciano Torres ANESTHESIA TYPE: General LMA/ETT Refer to Anesthesia Record ESTIMATED BLOOD LOSS: 25 PATHOLOGY: none sent TOURNIQUET TIME: 0 COMPLICATIONS: None Patient was transported to: PACU Patient's condition: stable Indications: Mina is a 28 year old male who presented to the Emergency Department after a fall. X-rays confirmed the diagnosis of a lateral malleolus fracture of the left ankle. I reviewed the possible treatment options and given the fracture, I recommended operative fixation. I discussed the technical details of the surg elo. I reviewed the risks such as bleeding, infection, pain, stiffness, malunion, nonunion, hardware prominence, hardware faiilure, malrotation, damage to nerves and vessels, blood clot. Despite these risks, he agreed to proceed. Findings: There was a fracture of the fibula which was reduced with traction and internal rotation and a clamp. This was secured with interfragmentary compression, lag screw, and a neutralization plate. Prior to fibular fixation there was some talar tilt and some slight medial clear space widening which was reduced fully and stable after fixation of the fibula. Procedure Description: Mina was greeted in the preoperative area. Consent was previously reviewed and signed. Once in the operating room, general anesthesia was administered. He was positioned in the supine position with the operative side placed onto a bone foam ramp. All bony prominences were well padded. Arms were placed out to the side, padded, and secured. A single dose of TXA, 1 gram, was then administered IV. Prophylactic antibiotics, Cefazolin 3 grams, was given for prophylactic antibiotics. A timeout was performed for safe surgery. The left leg was prepped with Chloraprep. The leg was draped with an extremity drape. Fluoroscopic images were then obtained which showed the fracture, which was marked on the skin for reference. Additionally, stress test of the left ankle was performed which showed some talar tilt as well as some widening of the medial clear space although no lashon subluxation of the tibia. The proposed surgical site was then anesthetized with 0.5% piperocaine with epinephrine. A longitudinal station was then made overlying the posterior aspect of the fibula. This was taken obstructive the skin. There is significant mount of soft tissue swelling and bleeding the area. This was dissected sharply down to the fibula. There is no passing nerve structures encountered. Once the fibula was identified the fractures these identifiable. A soft tissue elevator was utilized to remove soft tissue from the lateral aspect of the fibula. Fracture was fully evaluated. This area was irrigated debrided so the fracture edges were clean and easily identified. With manipulation of the foot, traction and internal rotation I was able to reduce the fibula and secured this with a clamp. X-ray showed appropriate reduction as the direct visualization. I then placed a single lag screw for interfragmentary compression. This was done by using a 3.5 mm drill for the near cortex and a 2.5 mm drill for the far cortex. This lag screw was placed without difficulty with excellent purchase and bite of the fibula. Clamp was removed and the fibula was stable. A neutralization plate was then placed. An 8 hole one third tubular plate was contoured on the back table and then placed onto the fibula. A single nonlocking, cortical, screw was placed proximally to secure the plate down to bone. Positioning was once again confirmed direct evaluation as well as fluoroscopic images. I then placed 3 locking screws in the distal aspect the plate and 3 additional nonlocking screws proximal. Final x-rays were obtained and showed anatomic reduction of the fracture with appropriate plate positioning. The wound was then thoroughly irrigated. Deep fascial tissues were reapproximated loosely over the plate. The remainder of the subcutaneous tissue was closed with 2-0 and 3-0 Vicryl. The skin was closed with 3-0 nylon in interrupted fashion. Wound was dressed with Xeroform, 4 x 4's, ABD. Webril was placed around the leg in a short posterior subsequent was applied. At the end of the case, all counts were correct. Mina tolerated the procedure well without known complication and was taken to the PACU for recovery. He will remain nonweightbearing in the splint. He will follow-up in the office in 2 weeks. Date of Procedure: 08/07/24
--- NOTE | 2024-08-07 15:08 | W.ANESPOSTOP ---
Postoperative Evaluation Date, Time and Location Date Performed: 08/07/24 Time Performed: 15:05 Patient Location: PACU Vital Signs Most Recent Imported Vital Signs: Most Recent Vital Signs Temp Pulse Resp BP Pulse Ox 36.3 C L 49 L 16 99/48 L 100 08/07/24 14:50 08/07/24 14:55 08/07/24 14:56 08/07/24 14:55 08/07/24 14:56 Assessment Mental Status: Awake (Alert & Oriented to Patient Baseline) Airway and Respiratory Function: Patent airway with normal (patient baseline) respiratory exam Cardiovascular Function: Hemodynamically Stable Hydration Status: Adequately Hydrated Nausea & Vomiting: No Nausea or Vomiting Pain: Pt. Denies Any Pain Peripheral Nerve Block: Patient did not receive a nerve block
[2024-08-07] MEDS: oxyCODONE 5 MG TAB PO (15:55)
== END 2024-08-07 16:34 | disposition home or self-care (01) ==
PROVIDERS: PCP Family Medicine; Visit Provider Student in an Organized Health Care Education/Training Program
PROC: (CPT 27792; principal; 2024-08-07 15:30)
DX: S82.832A Other fracture of upper and lower end of left fibula, initial encounter for closed fracture (principal); F25.9 Schizoaffective disorder, unspecified; I10 Essential (primary) hypertension; G47.30 Sleep apnea, unspecified; W00.0XXA Fall on same level due to ice and snow, initial encounter; Y93.9 Activity, unspecified; Y99.0 Civilian activity done for income or pay
CPT/HCPCS: 27792; 76000; 73600; J0690; J1100; J1885; J2405; J2704; J3010

== ENCOUNTER 2024-08-22 11:29 | Outpatient (CLI) | payer OTHER, SELFPAY ==
--- NOTE | 2024-08-22 10:45 | DI.RAD_ITS ---
Exam(s) XR ANKLE LT COMPLETE EXAM: XR ANKLE LT COMPLETE CLINICAL HISTORY: F/U ANKLE ORIF TECHNIQUE: 2D digital imaging was performed. Three views. COMPARISON: CR XR ANKLE LT COMPLETE from 08/06/2024 XA XR ANKLE LT 2V from 08/07/2024 FINDINGS: BONES: Lateral malleolar fixation plate is again noted. The fracture alignment remains nondisplaced. No additional fractures identified. No bony destructive lesion is seen. JOINTS:The ankle mortise is normally aligned. SOFT TISSUE: Swelling. IMPRESSION: Stable postoperative appearance. DATA REPOSITORY: RADIATION DOSE DELIVERED:
== END 2024-08-22 11:30 | disposition home or self-care (01) ==
LOC: DIORS 11:29
PROVIDERS: PCP Student in an Organized Health Care Education/Training Program; Visit Provider Physician Assistant
DX: S82.832D Other fracture of upper and lower end of left fibula, subsequent encounter for closed fracture with routine healing (principal); X58.XXXD Exposure to other specified factors, subsequent encounter
CPT/HCPCS: 73610

== ENCOUNTER 2024-09-16 15:52 | Outpatient (CLI) | payer OTHER, SELFPAY ==
--- NOTE | 2024-09-16 14:06 | DI.RAD_ITS ---
Exam(s) XR ANKLE LT 2V EXAM: XR ANKLE LT 2V CLINICAL HISTORY: S/P ORIF LEFT ANKLE. TECHNIQUE: 2D digital imaging was performed. Two images were obtained. AP and lateral views were ob tained. COMPARISON: CR XR ANKLE LT COMPLETE from 08/22/2024 FINDINGS: BONES: There are stable post operative changes present. A portion of the fracture line is still visu alized on the lateral view. No new fracture or dislocation. JOINTS: The joint spaces are well maintained. SOFT TISSUE: Normal. IMPRESSION: Stable postoperative changes. DATA REPOSITORY: RADIATION DOSE DELIVERED:
== END 2024-09-16 15:53 | disposition home or self-care (01) ==
LOC: DIORS 15:52
PROVIDERS: PCP Student in an Organized Health Care Education/Training Program; Visit Provider Student in an Organized Health Care Education/Training Program
DX: S82.832D Other fracture of upper and lower end of left fibula, subsequent encounter for closed fracture with routine healing (principal); X58.XXXD Exposure to other specified factors, subsequent encounter
CPT/HCPCS: 73600

== ENCOUNTER 2024-10-21 15:33 | Outpatient (CLI) | payer OTHER, SELFPAY ==
--- NOTE | 2024-10-21 13:04 | DI.RAD_ITS ---
Exam(s) XR ANKLE LT COMPLETE EXAM: XR ANKLE LT COMPLETE CLINICAL HISTORY: S/P ORIF L ANKLE TECHNIQUE: 2D digital imaging was performed. Three views. COMPARISON: CR XR ANKLE LT 2V from 09/16/2024 FINDINGS: BONES: stable alignment lateral malleolar hardware and fixation plate. Stable lateral no new fractur e is present. No bony destructive lesion is seen. JOINTS:The ankle mortise is normally aligned. SOFT TISSUE: Soft tissue swelling remains present. IMPRESSION: Stable fracture and hardware alignment. DATA REPOSITORY: RADIATION DOSE DELIVERED:
== END 2024-10-21 15:34 | disposition home or self-care (01) ==
LOC: DIORS 15:34
PROVIDERS: PCP Student in an Organized Health Care Education/Training Program; Visit Provider Student in an Organized Health Care Education/Training Program
DX: S82.832D Other fracture of upper and lower end of left fibula, subsequent encounter for closed fracture with routine healing (principal); X58.XXXD Exposure to other specified factors, subsequent encounter
CPT/HCPCS: 73610

== ENCOUNTER 2024-12-02 15:26 | Outpatient (CLI) | payer OTHER, SELFPAY ==
--- NOTE | 2024-12-02 13:15 | DI.RAD_ITS ---
Exam(s) XR ANKLE LT COMPLETE EXAM: XR ANKLE LT COMPLETE CLINICAL HISTORY: S/P ORIF TECHNIQUE: 2D digital imaging was performed. Three views. COMPARISON: CR XR ANKLE LT COMPLETE from 10/21/2024 FINDINGS: BONES: A fixation plate is again noted along the distal fibula. There has been continued healing of the fracture which is now barely visible. No acute fracture is present. No bony destructive lesion i s seen. JOINTS:The ankle mortise is normally aligned. The tibiotalar joint space is maintained. SOFT TISSUE: Normal. IMPRESSION: Continued healing of lateral malleolar fracture. DATA REPOSITORY: RADIATION DOSE DELIVERED:
== END 2024-12-02 15:27 | disposition home or self-care (01) ==
LOC: DIORS 15:27
PROVIDERS: PCP Student in an Organized Health Care Education/Training Program; Visit Provider Student in an Organized Health Care Education/Training Program
DX: S82.832D Other fracture of upper and lower end of left fibula, subsequent encounter for closed fracture with routine healing (principal); X58.XXXD Exposure to other specified factors, subsequent encounter
CPT/HCPCS: 73610

== ENCOUNTER 2024-12-26 14:37 | Outpatient (CLI) | payer OTHER, SELFPAY ==
--- NOTE | 2024-12-26 13:45 | DI.RAD_ITS ---
Exam(s) XR ANKLE LT COMPLETE EXAM: XR ANKLE LT COMPLETE CLINICAL HISTORY: S/P ORIF L ANKLE TECHNIQUE: 2D digital imaging was performed. Three views. COMPARISON: CR XR ANKLE LT COMPLETE from 10/21/2024 CR XR ANKLE LT COMPLETE from 12/02/2024 FINDINGS: BONES: No acute fracture is present. No bony destructive lesion is seen. A fixation plate is again noted along the lateral malleolus. The fracture is no longer visible. JOINTS:The ankle mortise is normally aligned. SOFT TISSUE: Normal. IMPRESSION: Healing of distal fibular fracture. DATA REPOSITORY: RADIATION DOSE DELIVERED:
== END 2024-12-26 14:38 | disposition home or self-care (01) ==
LOC: DIORS 14:37
PROVIDERS: PCP Student in an Organized Health Care Education/Training Program; Visit Provider Student in an Organized Health Care Education/Training Program
DX: S82.832A Other fracture of upper and lower end of left fibula, initial encounter for closed fracture (principal); S83.005A Unspecified dislocation of left patella, initial encounter
CPT/HCPCS: 73610